=== PATIENT | male | born 1955 | race Caucasian/White ===

== ENCOUNTER → 2019-07-15 | Outpatient (CLI) | payer BC ==
--- NOTE | 2019-07-16 08:50 | RADIOLOGY REPORT (SQ) ---
EXAM DESCRIPTION: MRI LUMBAR SPINE WITHOUT COMPLETED DATE/TIME: 07/15/2019 8:12 pm REASON FOR STUDY: M54.5 LOW BACK PAIN M54.5 LOW BACK PAIN COMPARISON: MRI 12/23/2014, lumbar spine series 4114 TECHNIQUE: Sagittal and Axial imaging includes T1, T2, STIR and gradient echo sequences. Coronal T2/ HASTE imaging. LIMITATIONS: None. FINDINGS: VISUALIZED UPPER ABDOMEN: Limited evaluation. No acute or suspicious findings suggested. SEGMENTATION: No transitional anatomy. The lowest well-developed disc space is labeled L5-S1. ALIGNMENT: Grade 2 degenerative anterolisthesis L4 on L5. Slight progressed from previous. VERTEBRAE: Intact. BONE MARROW: Marked reactive endplate changes L4-5. DISC SIGNAL: Marked loss height and T2 signal L4-5. POSTERIOR ELEMENTS: Generally intact. No pars defect evident. HARDWARE: None in the spine. CORD AND CONUS: Normal in size and signal intensity. Conus at the appropriate level. SOFT TISSUES: No aortic aneurysm seen. No bulky retroperitoneal adenopathy or mass. No paraspinal mas s or fluid. L1-L2: No significant spinal stenosis or exit foraminal stenosis. L2-L3: No significant spinal stenosis or exit foraminal stenosis. L3-L4: Generalized disc bulge at L 3 4. There is also a very large extruded L4-5 disc which extends superiorly along the L3 vertebral body of to the level of the L3-4 disc. There is marked central com pression of the thecal sac secondary to this extruded fragment. Posterior element overgrowth and lig amentous hypertrophy. Severe central canal stenosis at this level with moderate exit foraminal steno sis. L4-L5: Degenerative disc with large extruded fragment extending superiorly as described above. In ad dition the anterolisthesis is more pronounced than previous. Posterior element overgrowth with facet arthropathy. Severe central canal stenosis with subtotal occlusion. Marked narrowing of the left e xit foramina and mild narrowing of the right exit foramina. L5-S1: Mild disc bulge without spinal stenosis or exit foraminal stenosis. There is mild flattening of the intrathecal S1 roots. LOWER THORACIC: Incompletely imaged. No stenosis seen. SACRUM: Visualized upper sacrum intact. OTHER: No other significant findings. IMPRESSION: Significant change from previous. L4-5 disc extrusion extends superiorly to the level of the L3-4 disc. This fragment as well as a bul ging L3-4 disc causes severe spinal stenosis at the L3-4 level. There is also moderate exit foramina l stenosis. At L4-5 there is increasing anterolisthesis and marked posterior element overgrowth resulting in hernandez re spinal stenosis and marked narrowing of the left exit foramina. TECHNICAL DOCUMENTATION: JOB ID: [id number] [employer]- All Rights Reserved Reading location - IP/workstation name: [email or web address]
== END ==
LOC: RAD 19:28
PROVIDERS: ATTEND Physician Assistant
DX: M54.5 Low back pain (principal)
CPT/HCPCS: 72148